=== PATIENT | female | born 1980 | race Two or more races ===

== ENCOUNTER 2022-04-06 06:17 | Day surgery (SDC) | payer OTHER ==
[~2022-04-06] VITALS: Ht 167.6 cm; Wt 65.8 kg
[~2022-04-06 06:17] MED LIST: MACRODANTIN100 M1 PO
== END 2022-04-06 14:35 | disposition home or self-care (01) ==
LOC: CIR.AMB 06:17
PROVIDERS: ATTEND Obstetrics & Gynecology
DX: N84.0 Polyp of corpus uteri (principal); Z20.822 Contact with and (suspected) exposure to COVID-19; Z88.6 Allergy status to analgesic agent; Z88.0 Allergy status to penicillin

== ENCOUNTER 2024-12-16 12:35 | Outpatient (CLI) | payer OTHER | END 2024-12-16 12:41 | disposition home or self-care (01) | LOC: EKG 12:35 → RAD 12:35 | PROVIDERS: ATTEND Obstetrics & Gynecology | DX: R05.9 Cough, unspecified (principal) ==

== ENCOUNTER 2025-01-15 05:44 | Day surgery (SDC) | payer OTHER ==
[~2025-01-15 05:44] MED LIST changes: +IRON236 MG PO
[2025-01-15] MEDS ORDERED: POVIDONE-IODINE 118 ML BOTT TOP ONE ×2 (07:23→08:30)
[2025-01-15] MEDS ORDERED: MORPHINE SULFATE 4 MG/ML VIAL IV PRN (08:45)
[2025-01-15] MEDS ORDERED: PROMETHAZINE HCL 50 MG/ML AMPUL IM ONE (08:45)
[2025-01-15] MEDS ORDERED: MORPHINE SULFATE 4 MG/ML VIAL IV ONE (09:30)
== END 2025-01-15 11:20 | disposition home or self-care (01) ==
LOC: CIR.AMB 05:44
PROVIDERS: ATTEND Obstetrics & Gynecology
DX: N84.0 Polyp of corpus uteri (principal); Z88.0 Allergy status to penicillin; Z88.6 Allergy status to analgesic agent

== ENCOUNTER 2025-04-15 10:47 | Emergency (ER) | payer OTHER ==
[~2025-04-15] VITALS: Ht 167.6 cm; Wt 68.0 kg
[2025-04-15 11:20] VITALS: BP 118/80; O2SAT 100
[2025-04-15] MEDS ORDERED: BUTALB/ACETAMINOPHEN/CAFFEINE 1 TAB TABLET PO ONE ×2 (11:30)
[2025-04-15 11:50] LABS: BASO % 1.3 % (0.1-1.2); EOS # 0.19 (0.04-0.54); EOS % 3.0 % (0.7-7.0); LYMPH # 1.46 (1.18-3.74); LYMPH % 22.9 % (19.3-53.1); MEAN PLATELET VOLUME 9.70 fl (9.4-12.4); MONO # 0.44 (0.24-0.82); MONO % 6.9 % (4.7-12.5); NEUT # 4.20 (1.56-6.13); NEUT % 65.7 % (34.0-71.1); RED CELL DISTRIBUTION WIDTH 14.0 % (11.6-14.4)
[2025-04-15 12:15] LABS: ALT/SGPT 23.0 U/L (12-78); AST/SGOT 16.0 U/L (15-37); BILIRUBIN TOTAL 0.33 mg/dL (0.3-1.2); BUN CREA RATIO 14.0 (7.0-25.0); CREATININE SERUM 0.72 mg/dL (0.55-1.02); GFR 88.83; GLOBULINA 3.5 G/DL (2.4-3.5); GLUCOSE FASTING 116.0 mg/dL (65-100); OSMOLALITY SERUM 281.0 MOSM/KG (275-295)
[2025-04-15] MEDS ORDERED: BUTALB-ACETAMI1 EAC2 PO (16:06)
== END 2025-04-15 16:20 | disposition home or self-care (01) ==
LOC: ER 10:47
PROVIDERS: Preventive Medicine Public Health & General Preventive Medicine
DX: G43.909 Migraine, unspecified, not intractable, without status migrainosus (principal); E16.2 Hypoglycemia, unspecified; D64.9 Anemia, unspecified; Z88.6 Allergy status to analgesic agent; Z88.0 Allergy status to penicillin